=== PATIENT | female | born 1985 | race Caucasian/White ===

== ENCOUNTER 2025-01-17 08:15 | Emergency (ER) | payer OTHER ==
[~2025-01-17] VITALS: Ht 172.7 cm; Wt 77.4 kg
[2025-01-17 11:23] VITALS: BP 120/80
== END 2025-01-17 11:26 | disposition home or self-care (01) ==
LOC: ED 08:15
DX: S92.254A Nondisplaced fracture of navicular [scaphoid] of right foot, initial encounter for closed fracture (principal); X50.1XXA Overexertion from prolonged static or awkward postures, initial encounter; Z88.5 Allergy status to narcotic agent
CPT/HCPCS: 73610; 73630; 73700; 99284-25